=== PATIENT | male | born 1980 | race Caucasian/White ===

== ENCOUNTER 2023-10-20 13:46 | Emergency (ER) | payer BC, SELFPAY ==
--- NOTE | 2023-10-20 13:50 | ED.GENADULT ---
HPI - General Adult General Date Seen: 10/20/23 Chief complaint: Abdominal Pain Stated complaint: vomiting, lack of sleep due to ill Time Seen by Provider: 10/20/23 13:49 History of Present Illness HPI narrative: This is a 42-year-old male presenting to the ER today with concern for vomiting, insomnia, anxiety, hematemesis. Patient reports that he has no long-term medical conditions such as diabetes, cancer, asthma, hypertension, diabetes. He slipped and fell on the ice in the end of August and had a bad ankle fracture to his right ankle. It required surgical plating and and the operation was done through [facility] at their office in [place]. He was discharged on postoperative oxycodone. He 1st developed symptoms about a week after his ankle surgery with significant nausea and vomiting. He had also gone 4 days without a BM. He presented to the ER at [facility] for that. It sounds like he had a bad interaction at [facility]. A long wait in the ER, inconclusive workup in the ER, and then had to fight to be admitted. He was admitted overnight and then discharged home with Reglan and medications for constipation. It sounds like there was some question about cannabis hyperemesis syndrome, during that visit as well. It sounds like he was reasonably well for a week or so after discharge but then had another episode of protracted vomiting and abdominal pain that lasted a few days, sometime in the middle of September. He was trying not to come to the ER for that visit so did not come back to [facility] or come here. His most recent episode symptoms began about 5 days ago on Thursday. Since Thursday evening he has been having protracted vomiting. He says up to 50 episodes of emesis per day. Multiple episodes of emesis that were tinged with blood and ?had mouthfuls? of blood on Thursday and off and on on Thursday, Thursday, and Thursday, and into today. He has not had any bowel movement since Thursday. He was apparently soaking in the bath tub on Thursday and had a formed stool. He was started on Pepto-Bismol so his stool was black. He has not had any bowel movement since then. He is also having generalized abdominal pain. No fever. He also reports anxiety and insomnia. Pre dating all of his GI symptoms he has had a lot of psychosocial stress for several months. He is the father of some children. Their mother . He was having difficulty caring for the children so his mother actually took custody of them. Since May she has had full custody and is now started court proceedings for her to become their legal guardian. She has been granted temporary custody of the children since May. This is been very stressful for the patient. He has a new girlfriend who is supportive. They are most recent court proceeding was actually on Thursday. He says the court in the legal case against his mother was very stressful however there were some signs that there may be a positive outcome for him on Thursday. Despite that he was very anxious on Thursday. He was drinking wine. He had about 5 or 6 glasses of wine Thursday evening. Then his symptoms started up. He denies any previous diagnosis of anxiety, depression, bipolar or other mental health disorder. Interim some substances he does report that many years ago he did use some ecstasy recreationally. He had been a long-term marijuana smoker with daily use. However it sounds like is doctors at [facility] had told him he might have cannabis hyperemesis syndrome. He says he has not smoked any pot now in over a week. He has also quit smoking cigarettes. He also has a fairly regular alcohol drinker. He says he mostly drinks ?on weekends?. He says he usually drinks beer but recently his girlfriend had started drinking vodka but he stopped drinking that. Lately they have switched to box wine. Says he normally drinks once or twice a week. He had been drinking once earlier last week and then again on Thursday night. Patient is a bit evasive but it sounds like he has never been through any alcohol treatment or been told he has alcoholism. No history of alcohol withdrawal. He also says he has not slept since Thursday. He starting to feel ?delirious? and having trouble concentrating. Related Data Previous Rx's Medication Instructions Recorded lorazepam 1 mg tablet 1 mg PO TID PRN #10 tabs 10/20/23 omeprazole 40 mg capsule,delayed 40 mg PO DAILY #30 caps 10/20/23 release prochlorperazine maleate 10 mg 10 mg PO Q8H PRN #10 tabs 10/20/23 tablet (Compazine) Allergies Allergy/AdvReac Type Severity Reaction Status Date / Time acetaminophen [From Vicodin] Allergy Verified 10/20/23 13:55 hydrocodone [From Vicodin] Allergy Verified 10/20/23 13:55 PFSH PFS Social History Smoking Status: Smoker, status unknown Do you use any of these nicotine containing products: None How often do you have a drink containing alcohol: monthly or less How often do you have six or more drinks on one occasion: Less than monthly AUDIT-C Alcohol total score: 2 Non-prescribed substance use: marijuana (any form) Exam Narrative: Exam Narrative: Constitutional: Appears well-developed and well-nourished. Alert. Somewhat anxious and non sequential historian. Often times needs to be redirected back to talk about our current topical conversation. HENT: Head: Atraumatic. Nose: Nose normal. Mouth/Throat: Oral mucosa is clear and moist. no trismus. Pharynx normal. Tonsils symmetric. No tonsillar enlargement, erythema, or exudate. Eyes: Conjunctivae normal. EOM normal. Pupils equal, round, and reactive to light. No scleral icterus. Neck: Normal range of motion. Neck supple. No tracheal deviation present. Cardiovascular: Normal rate, regular rhythm. No gallop. No friction rub. No murmur heard. Symmetric radial artery pulses Pulmonary/Chest: Effort normal. No stridor. No respiratory distress. No wheezes. No rales. No rhonchi . No tenderness. Abdominal: Soft. Bowel sounds normal. No distension. No mass. Diffuse tenderness. No rebound. No guarding. Musculoskeletal: RUE: Normal range of motion. No tenderness. No deformity LUE: Normal range of motion. No tenderness. No deformity RLE: Normal range of motion. No edema. No tenderness. No deformity LLE: Normal range of motion. No edema. No tenderness. No deformity Neurological: Alert and oriented to person, place, and time. Normal strength. CN II-VII intact. No sensory deficit. GCS eye subscore is 4. GCS verbal subscore is 5. GCS motor subscore is 6. Normal coordination Skin: Skin is warm and dry. No rash noted. No pallor. Normal capillary refill. Psychiatric: Anxious. Endorses insomnia. Significant psychosocial stress. See HPI. Const: Vital Signs, click to edit/add: Vital Signs - 24 hr 10/20/23 13:53 10/20/23 16:05 Temperature 97.2 F L Pulse Rate [Right Pulse Oximeter] 106 H 100 Respiratory Rate 18 18 Blood Pressure [Ri ght Upper Arm] 154/125 H 143/92 H Pulse Oximetry 97 100 Oxygen Delivery Me thod Room Air Room Air Course Course ED Course: Recheck-feeling better. Requesting some fluids. Reevaluation(s) Reevaluation #1: Recheck-as tolerated water and crackers. Per per minute but not nauseous. Feeling better. Reevaluation #2: Recheck-still anxious. Requesting anxiety medication. Ativan ordered. Reevaluation #3: Recheck-resting. A little bit sleepy after the Ativan but easily arousable and conversant. Discussed his symptoms. We discussed admission for ongoing therapy and hydration versus outpatient management. He feels like he is ready to discharge. Vital Signs Vital signs: Initial Vital Signs Temperature 97.2 F L 10/20/23 13:53 Temperature Source Temporal Artery Scan 10/20/23 13:53 Pulse Rate 106 H 10/20/23 13:53 Respiratory Rate 18 10/20/23 13:53 Blood Pressure 154/125 H 10/20/23 13:53 Blood Pressure Mean 134 H 10/20/23 13:53 Blood Pressure Position Sitting 10/20/23 13:53 Pulse Oximetry 97 10/20/23 13:53 Oxygen Delivery Method Room Air 10/20/23 13:53 Vital Signs Temperature 97.2 F L 10/20/23 13:53 Pulse Rate 106 H 10/20/23 13:53 Respiratory Rate 18 10/20/23 13:53 Blood Pressure 154/125 H 10/20/23 13:53 Pulse Oximetry 97 10/20/23 13:53 Oxygen Delivery Method Room Air 10/20/23 13:53 Temperature 97.2 F L 10/20/23 13:53 Pulse Rate 100 10/20/23 16:05 Respiratory Rate 18 10/20/23 16:05 Blood Pressure 143/92 H 10/20/23 16:05 Pulse Oximetry 100 10/20/23 16:05 Oxygen Delivery Method Room Air 10/20/23 16:05 Medications Administered Medications: Discontinued Medications Generic Name Dose Route Start Last Admin Trade Name Freq PRN Reason Stop Dose Admin Droperidol 2.5 mg 10/20/23 14:24 10/20/23 14:56 Droperidol 2.5 Mg/Ml Inj IV 10/20/23 14:25 2.5 mg ONCE ONE Administration Sodium Chloride 1,000 mls @ 1,000 mls/hr 10/20/23 14:30 10/20/23 16:33 0.9 % Sodium Chloride 1000 Ml IV 10/20/23 15:29 Infused .Q1H GILL Infusion Lorazepam 1 mg 10/20/23 16:10 10/20/23 16:16 Lorazepam 2 Mg/Ml Inj IVP 10/20/23 16:11 1 mg ONCE ONE Administration Pantoprazole Sodium 80 mg 10/20/23 14:24 10/20/23 14:57 Pantoprazole Sodium 40 Mg Inj IVP 10/20/23 14:25 80 mg ONCE ONE Administration Medical Decision Making MDM Narrative Medical decision making narrative: Presented to the Emergency Department with a 5 day history of nausea and vomiting, with upper abdominal pain. Also insomnia and significant anxiety due to psychosocial stress (he is currently in the middle of a legal custody bhandari with his mother for custody of his children). He also has a history of marijuana use but quit about a week ago. He has occasional alcohol use but has not had any alcohol consumption since last Thursday. He quit smoking about a week ago as well. Has had similar episodes of abdominal pain and vomiting about a month ago with workup in the ER and then overnight hospitalization at [facility] without a clear diagnosis found. It sounds like he may have been told the had cannabis hyperemesis syndrome. The differential diagnosis of abdominal pain includes: Appendicitis, Bowel Obstruction, Ulcer, Ischemia, Cholecystitis, Diverticulitis, Pancreatitis, UTI, kidney stone, Enteritis/Colitis, as well as cyclic vomiting syndrome, cannabis hyperemesis and his syndrome, alcoholic gastritis, amongst many other etiologies. Laboratory testing does not reveal a cause for the patient's pain or vomiting. CT Imaging is noted to be normal. I do not the bilirubin is mildly elevated at 1.8. Other LFTs are normal. Lipase normal. No evidence for any biliary obstruction on CT. No right upper quadrant pain to suggest choledocholithiasis or gallstones. At this point I do not think he needs a gallbladder ultrasound but if he has worsening symptoms, would consider further imaging with ultrasound or HIDA. He also reported many episodes of nonbloody vomiting and some episodes of bloody vomiting. no anemia. In fact hemoglobin is elevated , likely due to hemoconcentration. Suspect his upper GI bleeding is probably Nuria-Nichole tear. Differential would also include alcoholic gastritis, peptic ulcer disease. Will also put him on a proton pump inhibitor. The exact etiology of the vomiting and pain is not clear at this time. No life threatening cause or need for emergent surgery or hospital admission is detected today. He is feeling better after meds given here in the ER. We discussed possible hospitalization but he request discharge home. The patient was advised that if symptoms do not completely resolve within another 24 hours re-evaluation with primary care or return to the ED is indicated. The patient also understands that if they worsen, they should return to the ER right away. I discussed the uncertainty about the diagnosis and answered the patient's questions. Abdominal pain return precautions discussed. He has been taking Reglan at home but it is ineffective. He says he has tried Zofran in the past and it has never worked for him. He did improve nicely with droperidol given here in the ER. Will try him on Compazine at home. QT interval normal on EKG. There is also some component of significant anxiety likely due to multiple psychosocial factors. He declines evaluation by [facility] today. He says he already has an outpatient therapist but has not seen them in some time. He will call his therapist to her reestablish care. Prescription for lorazepam and given to manage anxiety for the next couple of days. Ten tablets. Discussed benzodiazepine precautions and addiction precaution. Lab Data Labs: Lab Results 10/20/23 10/20/23 10/20/23 Range/Units 14:15 14:24 14:35 WBC 9.37 (4.50-11.00) K/uL RBC 5.69 (4.30-5.90) m/uL Hgb 18.5 H (13.5-17.5) gm/dL Hct 51.7 (37.0-53.0) % MCV 91 (80-100) fL MCH 33 (26-34) pg MCHC 36 (32-36) gm/dL RDW Coeff of Tamia 11.6 (11.5-15.5) % Plt Count 347 (140-440) K/uL Neut % (Auto) 62.3 (42.0-72.0) % Lymph % (Auto) 25.2 (20-44) % [place] % (Auto) 11.7 H (0.0-11.0) % Eos % (Auto) 0.5 (0.0-7.0) % Baso % (Auto) 0.2 (0.0-3.0) % Neut # (Auto) 5.83 (1.7-7.0) K/uL Lymph # (Auto) 2.36 (0.90-2.90) K/uL [place] # (Auto) 1.10 H (0.00-0.90) K/UL Eos # (Auto) 0.05 (0.00-0.50) K/uL Baso # (Auto) 0.02 (0.00-0.30) K/uL Abs Immat Gran (auto) 0.01 (0.00-0.30) K/uL Imm/Tot Granulo (auto) 0.1 % Sodium 136 (135-149) mmol/L Potassium 3.8 (3.6-5.1) mmol/L Chloride 100 (96-114) mmol/L Carbon Dioxide 22 (20-32) mmol/L Anion Gap 14 (7-15) mEq/L BUN 22 (5-24) mg/dL Creatinine 0.7 (0.5-1.5) mg/dL Estimated Creat Clear 152.43 Estimated GFR 119 ml/min Glucose 99 (60-115) mg/dL Lactate 1.3 (0.5-1.9) mmol/L Calcium 10.1 (8.4-10.6) mg/dL Magnesium 2.0 (1.5-2.6) mg/dL Total Bilirubin 1.8 H (0.1-1.5) mg/dL AST 28 (12-35) U/L ALT 27 (4-50) U/L Alkaline Phosphatase 65 (40-150) U/L Total Protein 8.2 (6.0-8.3) g/dL Albumin 5.2 H (3.3-5.0) g/dL Lipase 141 (23-300) U/L Urine Color Yellow (Yellow) Urine Appearance Clear (Clear) Urine pH 6.0 (5.0-8.5) Ur Specific [place] <= 1.005 (1.000-1.030) Urine Protein Negative (Negative) Urine Glucose (UA) Negative (Negative) Urine Ketones 1+ A (Negative) Urine Blood Negative (Negative) Urine Nitrite Negative (Negative) Urine Bilirubin Negative (Negative) Urine Urobilinogen 4.0 A (0.2-1.0) Ur Leukocyte Esterase Negative (Negative) Urine RBC 0-2 (0-2) Urine WBC 0-2 (0-5) Ur Squamous Epith Cells Moderate A (None-Few) Urine Bacteria None (None) Ethyl Alcohol < 0.01 L (0.01-0.03) % Imaging Data CT scan - abdomen: Attestation: I have reviewed the pertinent imaging results. Radiologist's impression: FINDINGS: Lower chest: Unremarkable. Liver: Normal in contour with focal fat adjacent to the falciform ligament. Gallbladder and bile ducts: Unremarkable. No stones or inflammation. No biliary dilatation. Spleen: Unremarkable. Normal in size without mass. Pancreas: Unremarkable. No mass or inflammation. Adrenal glands: Unremarkable. No nodules. Kidneys: Symmetric renal enhancement without hydronephrosis. Nonobstructing nephrolithiasis. Vasculature: Unremarkable. GI tract: The stomach is unremarkable. No dilated loops of large or small intestine. Normal appendix. Pelvis: Unremarkable. Bones: Minimal capsular calcification along the left hip. IMPRESSION: Unremarkable abdomen and pelvis CT. No findings to explain the patient`s pain. ECG Data Attestation: I personally reviewed and interpreted this ECG as follows: Interpretation: Normal sinus rhythm Rate: 97 [place]: 146 QRS axis: Normal axis. Voltage criteria for LVH. ST segment/T wave: No ST segment elevation or depression. QTc: 462 Discharge Plan Discharge Clinical Impression: Insomnia, Anxiety, Elevated bilirubin, Vomiting Patient Disposition: Home, Self-Care Condition: Stable Instructions: Acute Nausea and Vomiting (ED), Insomnia (ED), Anxiety (ED) Additional Instructions: As we discussed, please recheck with your regular doctor (or come back to the ER) by Thursday to have your labs and your bilirubin level rechecked. If you have worsening symptoms such as uncontrolled nausea or vomiting, anxiety or insomnia, bloody vomiting or bloody stools, come back to the ER right away You should have outpatient workup with gastroenterology within the next 1-2 weeks. You can call the [facility] at 5:07 a.m. [phone] schedule an outpatient follow-up. You could also call another GI provider such as [facility]. The scheduling phone number for [facility] is [phone] Please follow-up with your regular doctor, Dr. Bates within the next 2-3 days. Please call your counselor to reestablish a therapy connection within 1 week. Will start you on anxiety medicine (lorazepam). The you can use this for the next couple of days. Use caution with this because it causes drowsiness, dizziness, and can be addictive. Will also start you on stomach acid medication-Prilosec. Use the nausea medication (Compazine) if needed to help control nausea and vomiting. Continue to abstain from alcohol, cannabis, and tobacco. It is fantastic that you quit! Drink plenty of fluids. Eat soft, easily digestible food. Avoid spicy or acidic food. Prescriptions: New lorazepam 1 mg tablet 1 mg PO TID PRNQty: 10 0RF omeprazole 40 mg capsule,delayed release(DR/EC) 40 mg PO DAILY Qty: 30 2RF prochlorperazine maleate [Compazine] 10 mg tablet 10 mg PO Q8H PRNQty: 10 0RF Follow Up/Referrals: Provider,Not a Local [Primary Care Provider] - Stand Alone Forms: [employer] Info Instructions
[2023-10-20 13:53] VITALS: BP 154/125; PULSE 106; RESP 18; TEMP 36.2; O2SAT 97; BMI 27.1
--- NOTE | 2023-10-20 14:24 | CT_ITS ---
Patient: THA DE OLIVEIRA Facility:?[facility] Patient ID:?[id number] Site Patient ID:?[id number]. Site :?[id number] Study:?CT-Abdomen/Pelvis W/ 98CC ISOVUE 370-10/20/2023 2:48:56 PM Ordering Physician:RICH Final Report: INDICATION: Abdominal pain and vomiting TECHNIQUE: Axial images were obtained from the diaphragm to the pubic symphysis. Reformats were obtained in the coronal and sagittal plane. IV Contrast: 98 cc Isovue 370 Oral Contrast: None COMPARISON: None. FINDINGS: Lower chest: Unremarkable. Liver: Normal in contour with focal fat adjacent to the falciform ligament. Gallbladder and bile ducts: Unremarkable. No stones or inflammation. No biliary dilatation. Spleen: Unremarkable. Normal in size without mass. Pancreas: Unremarkable. No mass or inflammation. Adrenal glands: Unremarkable. No nodules. Kidneys: Symmetric renal enhancement without hydronephrosis. Nonobstructing nephrolithiasis. Vasculature: Unremarkable. GI tract: The stomach is unremarkable. No dilated loops of large or small intestine. Normal appendix. Pelvis: Unremarkable. Bones: Minimal capsular calcification along the left hip. IMPRESSION: Unremarkable abdomen and pelvis CT. No findings to explain the patient`s pain. Please note that all CT scans at this facility use dose modulation, iterative reconstruction, and/or weight-based dosing when appropriate to reduce radiation dose to as low as reasonably achievable. Dictated by Hussein Alatorre MD @ 10/20/2023 3:26:24 PM Signed by:?Hussein Alatorre MD @10/20/2023 3:26:24 PM (Electronic Signature)
[2023-10-20 14:46] LABS: Lactate* 1.3 mmol/L (0.5-1.9)
[2023-10-20 14:49] LABS: Basophils Absolute Auto 0.02 K/uL (0.00-0.30); Basophils Percent Auto 0.2 % (0.0-3.0); Eosinophils Absolute Auto 0.05 K/uL (0.00-0.50); Eosinophils Percent Auto 0.5 % (0.0-7.0); Hematocrit 51.7 % (37.0-53.0); Hemoglobin* 18.5 gm/dL (13.5-17.5); Immature Granulocytes Abs Auto 0.01 K/uL (0.00-0.30); Immature Granulocytes Pct Auto 0.1 %; Lymphocytes Absolute Auto 2.36 K/uL (0.90-2.90); Lymphocytes Percent Auto 25.2 % (20-44); Mean Corpuscular HGB Conc 36 gm/dL (32-36); Mean Corpuscular Hemoglobin 33 pg (26-34); Mean Corpuscular Volume 91 fL (80-100); Monocytes Percent Auto 11.7 % (0.0-11.0); Neutrophils Absolute Auto 5.83 K/uL (1.7-7.0); Neutrophils Percent Auto 62.3 % (42.0-72.0); Platelet Count* 347 K/uL (140-440); RDW Coefficient of Variation % 11.6 % (11.5-15.5); Red Blood Count 5.69 m/uL (4.30-5.90); White Blood Count* 9.37 K/uL (4.50-11.00)
[2023-10-20] MEDS: 0.9 % SODIUM CHLORIDE 1000 ml 1,000 ML IV (14:50)
[2023-10-20 14:51] LABS: Slide Review Reflex No
[2023-10-20] MEDS: droperidoL 2.5 MG/ML inj IV (14:56)
[2023-10-20] MEDS: PANTOPRAZOLE SODIUM 40 MG INJ 80 MG IVP (14:57)
[2023-10-20 15:40] LABS: Albumin* 5.2 g/dL (3.3-5.0); Chloride* 100 mmol/L (96-114); Sodium* 136 mmol/L (135-149)
[2023-10-20 15:41] LABS: Potassium* 3.8 mmol/L (3.6-5.1)
[2023-10-20 15:42] LABS: Bilirubin Total* 1.8 mg/dL (0.1-1.5); Creatinine* 0.7 mg/dL (0.5-1.5); Est. Creatinine Clearance* 152.43; Estimated Glomerular Filt Rate 119 ml/min
[2023-10-20 15:43] LABS: Alanine Aminotransferase* 27 U/L (4-50); Alkaline Phosphatase* 65 U/L (40-150); Anion Gap 14 mEq/L (7-15); Aspartate Amino Transferase* 28 U/L (12-35); Blood Urea Nitrogen* 22 mg/dL (5-24); Calcium* 10.1 mg/dL (8.4-10.6); Carbon Dioxide* 22 mmol/L (20-32); Glucose* 99 mg/dL (60-115); Lipase* 141 U/L (23-300); Total Protein* 8.2 g/dL (6.0-8.3)
[2023-10-20 15:52] LABS: Ethanol* < 0.01 % (0.01-0.03)
[2023-10-20 16:05] VITALS: BP 143/92; PULSE 100; RESP 18; O2SAT 100
[2023-10-20 16:07] LABS: Appearance Urine Clear (Clear); Bilirubin Urine Negative (Negative); Blood Urine Negative (Negative); Color Urine Yellow (Yellow); Glucose Urine Negative (Negative); Ketones Urine 1+ (Negative); Leukocyte Esterase Urine Negative (Negative); Nitrite Urine Negative (Negative); Protein Urine Negative (Negative); Specific Gravity Urine <= 1.005 (1.000-1.030)
[2023-10-20] MEDS: LORazepam 2 MG/ML inj 1 MG IVP (16:16)
[2023-10-20 16:24] LABS: RBC Urine 0-2 (0-2); Squamous Epithelial Cell Urine Moderate (None-Few); WBC Urine 0-2 (0-5)
== END 2023-10-20 17:24 | disposition home or self-care (01) ==
PROVIDERS: Emergency Provider Emergency Medicine
DX: G47.00 Insomnia, unspecified (principal); F41.9 Anxiety disorder, unspecified; E80.6 Other disorders of bilirubin metabolism
CPT/HCPCS: 36415; 74177; 80053; 81001; 82077; 83605; 83690; 83735; 85025; 93005; 96374; 96375; 99284; 99285; C9113; J1790; J2060; J7030; Q9967